=== PATIENT | female | born 1945 | race Asian ===

== ENCOUNTER → 2019-04-15 | Outpatient (CLI) | payer MEDICARE | END | disposition short-term general hospital (02) | LOC: EMS 14:06 | PROVIDERS: ATTEND Surgery | DX: S79.912A Unspecified injury of left hip, initial encounter (principal); W01.198A Fall on same level from slipping, tripping and stumbling with subsequent striking against other object, initial encounter; Y93.01 Activity, walking, marching and hiking; Y92.832 Beach as the place of occurrence of the external cause | CPT/HCPCS: A0425; A0427 ==